=== PATIENT | female | born 1965 | race Caucasian/White ===

== ENCOUNTER 2016-06-08 21:58 | Emergency (ER) | payer OTHER ==
[2016-06-08 22:49] LABS: MANUAL DIFF NEEDED? NO
[2016-06-08 22:57] LABS: BASO% 0.8 % (0.0-0.8); EOS# 0.25 X1000 (0.0-0.7); EOS% 2.3 % (0.0-10.0); HEMATOCRIT 39.1 % (37.0-47.0); HEMOGLOBIN 13.3 g/dL (12.0-16.0); IMM GRAN# 0.01 X1000 (0.0-0.04); IMM GRAN% 0.1 % (0.0-0.5); LYMPH% 30.1 % (20.5-51.1); MCH 30.3 PG (27-31); MCV 89.1 FL (81-99); MONO# 0.75 X1000 (0.11-0.59); MONO% 6.8 % (1.7-9.3); MPV 11.4 FL (7.4-10.4); NEUT% 59.9 % (42.2-75.2); PLT 199 X1000 (130-400); RBC 4.39 XMIL (4.2-5.4)
[2016-06-08 23:09] LABS: AGAP 13; ALKALINE PHOSPHATASE 79 U/L (32-104); BUN 13 mg/dL (8-22); CALCIUM 9.8 mg/dL (8.8-10.2); CHLORIDE 98 mmol/L (98-107); COSMO 278; GOT 35 U/L (10-30); GPT 38 U/L (10-36); POTASSIUM 3.1 mmol/L (3.5-5.1); SODIUM 138 mmol/L (136-145); TCO2 27 mmol/L (25-35)
[2016-06-08 23:19] LABS: FREE T4 1.09 ng/dL (0.93-1.70)
[2016-06-09] MEDS ORDERED: KLOR-CON PO ONE (00:12)
--- NOTE | 2016-06-09 00:18 | PROVIDER DOCUMENTATION ---
HPI-General Adult - General Chief Complaint: Psych Stated Complaint: MEDICAL CLEARANCE FOR PSYCH Time Seen by Provider: 06/08/16 22:03 Source: patient Allergies/Adverse Reactions: Patient Allergies Allergy/AdvReac Type Severity Reaction Status Date / Time chlorpromazine HCl * Allergy face numb Verified 06/08/16 22:12 [From Thorazine] ziprasidone HCl * Allergy face numb Verified 06/08/16 22:12 [From Geodon] ziprasidone mesylate * Allergy face numb Verified 06/08/16 22:12 [From Geodon] Home Medications: Home Medication List Medication Instructions Recorded Confirmed Last Taken Type Fluphenazine [Prolixin] 10 mg PO QHS 30 Days 03/22/16 06/09/16 06/07/16 21:00 Rx LISINOpril [Prinivil] 10 mg PO DAILY #30 tablet 03/22/16 06/09/16 06/08/16 08: 30 Rx Metformin [Glucophage] 1,000 mg PO BID CC 30 Days 03/22/16 06/09/16 06/08/16 08: 30 Rx Page-3 Fatty Acids [Fish Oil 1,000 mg PO BID 30 Days 03/22/16 06/09/16 08:30 Rx Concentrate] Sertraline [Zoloft] 100 mg PO QAM 30 Days 03/22/16 06/09/16 06/08/16 08:30 Rx Sulfamethoxazole/Trimethoprim 1 each PO BID #14 tablet 06/09/16 Unknown Rx [Bactrim Ds Tablet] - History of Present Illness -Gen Adult Nature of Presenting Problems: Pt. is 50 yof that presents with c/o hearing voices and telling her things to confuse her. Pt. reports she has no Suicidal thoughts, homicidal thoughts or visual hallucinations but is hearing voices. Pt. denies any other symptoms at time of exam. Pt. is unsure of when this began and she was brought in by EMS with a police escort because the patient wouldn't follow the PD orders. Location of Pain/Injury: reports: none. denies: head, face, mouth, neck, chest , upper extremity, hand(s), abdomen, back, pelvis, genitalia, lower extremity, feet, upper body, lower body, generalized Pain Radiation: reports: no radiation Quality of Pain: reports: none. denies: aching, burning, cramping, dull, fullness, indigestion, pressure, sharp, stabbing, tearing, throbbing, tightness Severity: denies: mild, moderate, severe Onset/Duration: reports: unsure Timing: reports: still present. denies: improving, gone now, resolved prior to arrival, intermittent, constant, changing over time, getting worse Context/Activities at Onset: reports: none. denies: recent emotional stress, recent physical stress, recent trauma history, possible bad food, cold exposure , out of country travel Modifying Factors: improves with: nothing Associated Symptoms: reports: other (auditory hallucinations). denies: anxiety , arm pain, back/neck pain, chest pain, constipation, cough, diaphoresis, diarrhea, dizziness, EENT symptoms, fatigue, fever/chills, genitourinary problems, headaches, heartburn, joint pain, loss of appetite, malaise, muscle aches, sinus congestion/drainage, nausea, rash, seizure, shortness of breath, sensory/motor loss, pain with inspiration, swelling/mass in abdomen, syncope, vomiting, weakness, trouble walking Similar Symptoms Previously?: Yes Recently seen or treated by another doctor?: No Review of Systems - Adult - REVIEW OF SYSTEMS - ADULT Constitutional: reports: see HPI. denies: chills, fever, fatique Eyes: reports: see HPI. denies: discharge, blurred vision, double vision Ears, Nose, Mouth & Throat: reports: see HPI. denies: ear pain, hearing loss, sinus problem, nose pain, loose teeth, mouth/dental pain, throat pain, throat swelling Cardiovascular: reports: see HPI. denies: chest pain, irregular heart rate, orthopnea, palpitations, syncope Respiratory: reports: see HPI. denies: cough, dyspnea on exertion, pleurisy, shortness of breath, wheezing Gastrointestinal: reports: see HPI. denies: abdominal pain, hematemesis, diarrhea, nausea, vomiting Genitourinary: reports: see HPI. denies: dysuria, discharge, frequency, hematuria, hesitency, urgency Musculoskeletal: reports: see HPI. denies: bone pain, back pain, joint pain, joint swelling, muscle aches, neck pain Integumentary: reports: see HPI. denies: hives, itching, rash, skin thickening Neurological: reports: see HPI. denies: ataxia, headache/migraines, numbness, seizure, tremors Psychiatric: reports: see HPI, other (auditory halluciations). denies: anxiety , depression, emotional problems, insomnia, panic attacks, suicidal thoughts Past History - Adult - PAST MEDICAL HISTORY-ADULT Review of Records: reports: Old Records Reviewed, Nursing Assessment Review, Medications Reviewed, Social history reviewed & non-contributory. Major Childhood Illnesses: reports: denies history Cardiovascular: reports: denies history Respiratory: reports: denies history Gastrointestinal: reports: denies history Obstetrical/Gynecological: reports: denies history Genitourinary: reports: denies history Musculoskeletal: reports: denies history Neurological: reports: denies history Endocrine/Immune: reports: denies history Other Conditions: reports: denies history - IMMUNIZATION STATUS Childhood Immunizations: See Nurse Assessment Flu Vaccine: See Nurse Assessment - FAMILY HISTORY Family History: reviewed, not pertinent - SOCIAL HISTORY Smoking: non-smoker Physical Exam-General - PHYSICAL EXAM-ADULT Initial Vital Signs Reviewed: Yes - CONSTITUTIONAL General Appearance: alert, mild distress, obese. negative: thin, anxious, lethargic, slow to respond, obtunded, combative - EYES Eyes: PERRL/EOMI, pink conjunctivae. negative: conjuctival exudate, scleral icterus, subconjunctival hemorrhage - HEAD, EARS, NOSE, MOUTH & THROAT HENMT: normocephalic/atraumatic, moist mucous membranes. negative: angioedema, frontal tenderness, maxillary tenderness - NECK Neck: non-tender, full range of motion, supple, normal inspection. negative: lymphadenopathy, trachial deviation, thyromegaly - RESPIRATORY Respiratory: lungs clear, normal breath sounds. negative: crackles, rales, rhonchi, stridor, wheezing - CARDIOVASCULAR Cardiovascular: normal peripheral pulses, regular rate, rhythm, no edema, no JVD , no murmur. negative: extra beats, friction rub, irregularly irregular - CHEST (BREASTS) Chest/Breast: deferred - GASTROINTESTINAL (ABDOMEN) Abdominal Exam: normal bowel sounds, non tender, soft. negative: distended, guarding, rigid, rebound, tenderness, hernia, mass - GENITOURINARY Female Genitalia/Pelvic Exam: deferred Rectal Exam: deferred Hemoccult Exam: deferred - LYMPHATIC Lymphatic: no adenopathy. negative: axilla node tender, cervical node tenderness - MUSCULOSKELETAL Back Exam: normal inspection, no CVA tenderness, no vertebral tenderness. negative: ecchymosis, swelling, vertebral tenderness Extremity: normal range of motion, non-tender, normal gait, normal inspection. negative: deformity, erythema, inflammation, swelling, tenderness Peripheral Pulses: radial (R): 2+, radial (L): 2+ - SKIN Integumentary: normal color, normal turgor, warm/dry. negative: cyanosis, diaphoresis, ecchymosis, erythema, jaundice, mottled, pallor, petechiae, purpura , rash, swelling, tenderness - NEUROLOGIC Neurologic: grossly normal, no motor/sensory deficits. negative: abnormal gait , aphasia, facial droop, focal weakness, motor weakness, sensory deficit - PSYCHIATRIC Psych/Mental Status: oriented x 3, paranoid, other (auditory hallucinations). negative: normal mood/affect, normal thought content, normal thought process, anxious, tearful Progress - CHANGE OF SHIFT REPORT (ED Provider) Report Given and Care Transferred to:: Dr. Simons Time of Transfer: 01:43 Items Pending: Physician Consult/Arrival Tentative Impression of Patient: auditory hallucinations Departure - Departure Time of Disposition Order: 01:33 DIAGNOSIS: Hallucinations Disposition: [facility]IC [facility] [address] Certified Medical Emergency: Emergent Condition: Stable Prescriptions: Sulfamethoxazole/Trimethoprim [Bactrim Ds Tablet] 1 each PO BID #14 tablet Referrals: Anneliese Velez MD [Primary Care Provider] - Attestation - Physician/ MARI Attestation Patient care was provided by Advanced Practice Provider:: Yes Advanced Practice Provider:: Esdras Thorpe Advanced Practice Provider documentation review:: The Mid-level provider documentation, treatment plan and medical decision making was reviewed by the physician who agrees with all treatment and medical decision making by the [facility]. The physician spent face to face time with patient:: Yes
[2016-06-09 01:26] LABS: URINE SOURCE CLEAN CATCH
[2016-06-09 01:37] LABS: BILIRUBIN URINE NEGATIVE (NEGATIVE); BLOOD URINE 1+ (NEGATIVE); CLARITY SL. CLOUDY (CLEAR); COLOR YELLOW; GLUCOSE URINE NEGATIVE (NEGATIVE); LEUKOCYTES URINE 2+ (NEGATIVE); NITRITE URINE NEGATIVE (NEGATIVE); PROTEIN URINE TRACE mg/dL (NEGATIVE); SP GRAVITY URINE 1.005; UROBILINOGEN URINE NORMAL
[2016-06-09 01:40] LABS: UR AMPHETAMINES QUAL NONE DETECTED (NONE DETECT); UR BARBITUATES QUAL NONE DETECTED (NONE DETECT); UR BENZODIAZEPIN QUAL NONE DETECTED (NONE DETECT); UR CANNABINOIDS QUAL NONE DETECTED (NONE DETECT); UR COCAINE QUAL NONE DETECTED (NONE DETECT); UR MDMA QUAL NONE DETECTED (NONE DETECT); UR METHADONE QUAL NONE DETECTED (NONE DETECT); UR METHAMPHETAMINE QUAL NONE DETECTED (NONE DETECT); UR OPIATES QUAL NONE DETECTED (NONE DETECT); UR OXYCODONE QUAL NONE DETECTED (NONE DETECT); UR PCP QUAL NONE DETECTED (NONE DETECT); UR TCA QUAL NONE DETECTED (NONE DETECT)
[2016-06-09] MEDS ORDERED: XYLOCAINE-MPF 1% INJ ONE (01:42)
[2016-06-09] MEDS ORDERED: ROCEPHIN IM ONE (01:42)
[2016-06-09 01:51] LABS: URINE WBC TNTC /HPF (<10)
[2016-06-09 01:52] LABS: URINE CULTURE PL NEEDED? YES; URINE EPITHELIAL CELLS <10 /HPF (<10); URINE RBC <10 /HPF (<10)
[2016-06-09 05:03] VITALS: BP 116/84
--- NOTE | 2016-06-09 05:55 | EKG Report ---
Test Performed on : 06/09/2016 04:42:12 AM Test Reason : PSYCH Blood Pressure : / mmHG Vent. Rate : 059 BPM Atrial Rate : 059 BPM P-R Int : 142 ms QRS Dur : 088 ms QT Int : 448 ms P-R-T Axes : 052 041 034 degrees QTc Int : 443 ms Sinus bradycardia. Nonspecific T wave abnormality Abnormal ECG When compared with ECG of 04-MAR-2016 07:49, No significant change was found Unconfirmed Result
== END 2016-06-09 05:36 ==
LOC: P.ED 21:58
DX: R44.0 Auditory hallucinations (principal); E66.9 Obesity, unspecified; Z79.899 Other long term (current) drug therapy
CPT/HCPCS: 80053; 80305; 81001; 82607; 82948; 84439; 84443; 85025; 87088; 93005; 96372; G0480; J0696; 80320